=== PATIENT | male | born 1980 | race African-American/Black ===

== ENCOUNTER 2018-06-10 05:24 | Day surgery (SDC) | payer OTHER ==
[~2018-06-10] VITALS: Ht 172.7 cm; Wt 142.4 kg
--- NOTE | ~2018-06-10 | EKG ---
[address] [address] ELECTROCARDIOGRAM REPORT Name: PIETER ALARCON III Room #: [address] [place] [address]#: [id number] Admission: 06/10/18 Attend Phys: Ronny Chapa MD Discharge: Date of : 78 Report #: [id number] THIS REPORT FOR: //name// [facility] Test Date: 2018-06-10 Test Time: 09:09:44 Pat Name: PIETER ALARCON Department: Room: [facility] Gender: M [employer] Internship: [place] : 1980 Requested By: Ronny Chapa Order Number: [id number] MD: Simon Aquino Measurements Intervals [place] Rate: 80 P: 53 MN: 162 QRS: 47 QRSD: 104 T: 16 QT: 348 QTc: 402 Interpretive Statements Sinus rhythm ST elev, probable normal early repol pattern No previous ECG available for comparison Electronically Signed On 06-10-2018 9:19:41 [employer]IEF [employer] OFFICER by Simon Aquino [email or web address] <ELECTRONICALLY SIGNED> By: Simon Aquino MD, [facility] 06/10/18918 8 8 Simon Aquino MD, [facility] /EPI
--- NOTE | ~2018-06-10 | O ---
[facility] [place] [address] OPERATIVE REPORT Name: KELLY ALARCONJASON DONALD Room #: DEP [facility].#: [id number] Admission: 06/10/18 Attend Phys: Ronny Chapa MD Discharge: 06/10/18 Date of : 78 Report #: [id number] THIS REPORT FOR: //name// CC: RUBINA physician/PCP Ronny Chapa DATE OF SERVICE: 06/10/2018 PREOPERATIVE DIAGNOSES: 1. Left foot hindfoot osteoarthritis. 2. Left foot flat foot deformity. POSTOPERATIVE DIAGNOSIS: 1. Left foot hindfoot osteoarthritis. 2. Left foot flat foot deformity. PROCEDURE: Left foot hindfoot triple arthrodesis. SURGEON: Ronny Chapa MD. SECURITY RISK ANALYST: Leah Mancuso. ANESTHESIA: General. ESTIMATED BLOOD LOSS: Minimal. DRAINS: No drains. TOURNIQUET TIME: 75 minutes. DESCRIPTION OF PROCEDURE: The patient brought to the operating room where he was placed under general anesthesia. Once under adequate general anesthesia, his left lower extremity was prepped and draped in a sterile manner. The extremity was elevated, exsanguinated and a tourniquet placed to 300 mmHg. A lateral incision over the sinus tarsi was then made. This was dissected down through the soft tissue, elevating the fat pad and the extensor digitorum brevis musculature off of the calcaneocuboid and subtalar joints. Subsequent to this, the calcaneocuboid and subtalar joints were then prepared utilizing osteotomes, curettes and a angela to good bleeding subchondral bone. Signafuse allograft was then placed into the joints. A dorsal incision over the talonavicular joint was then made approximately 4 cm in length. Dissection was carried down to the talonavicular joint, which was then subsequently exposed and prepared in a similar manner as the calcaneocuboid and subtalar joints. The wound was irrigated copiously. The Signafuse allograft was then placed into each of the 3 joints and fixation across the subtalar joint was achieved utilizing fluoroscopy for guidance with two 7.3 mm cannulated screws. Fixation across the [address] [address] OPERATIVE REPORT Name: PIETER ALARCON III Room #: DEP [facility]..#: [id number] Admission: 06/10/18 Attend Phys: Ronny Chapa MD Discharge: 06/10/18 Date of : 78 Report #: [id number] talonavicular and calcaneocuboid joints was then achieved utilizing three 4.5 mm cannulated screws placed in each of the talonavicular and calcaneocuboid joints. Excellent fixation and alignment was achieved in this manner as verified under fluoroscopy. The wounds were then irrigated copiously and subsequently closed with 2-0 Vicryl in the deep and subcutaneous tissues and jarrell for the skin. The wounds were dressed with Xeroform, 4 x 4s, and sterile soft compressive dressing with a short leg cast was placed. Tourniquet was let down at approximately 75 minutes. Toes were pink and warm with good capillary refill. There were no complications from the procedure. The patient tolerated the procedure well and was taken to the recovery room without incident. By: [id number] Ronny Chapa MD /nt
[~2018-06-10 05:24] MED LIST: GLUCOTROL5 MG PO
[2018-06-10 09:20] VITALS: BP 132/76
[2018-06-10] MEDS ORDERED: ASA5UEC PO (12:27)
[2018-06-10] MEDS ORDERED: PERCOCET 7.5-31 EACH PO (12:28)
[2018-06-10 12:59] VITALS: BP 132/76
== END 2018-06-10 14:40 | disposition home or self-care (01) ==
LOC: TBA 05:24 → OR 05:24
DX: M19.072 Primary osteoarthritis, left ankle and foot (principal); M21.42 Flat foot [pes planus] (acquired), left foot; E11.9 Type 2 diabetes mellitus without complications; Z98.890 Other specified postprocedural states; Z79.899 Other long term (current) drug therapy; Z87.442 Personal history of urinary calculi; Z79.82 Long term (current) use of aspirin; Z79.891 Long term (current) use of opiate analgesic
CPT/HCPCS: 50010; 50101; 50386; 51412; 53341; 55430; 56524; 57091; 62110; 62900; 64043; 65060; 70005